=== PATIENT | female | born 1990 | race Caucasian/White ===

== ENCOUNTER → 2016-12-18 | Outpatient (CLI) | payer OTHER, BC ==
[2016-12-21 01:28] LABS: CHLAMYDIA TRACH RNA*** NOT DETECTED (NOT DETECTED); GC (NEIS GONORRHOEAE)RNA** NOT DETECTED (NOT DETECTED)
== END | disposition home or self-care (01) ==
LOC: C.LABSPEC 13:48
PROVIDERS: ATTEND Physician Assistant
DX: Z30.430 Encounter for insertion of intrauterine contraceptive device (principal); Z11.3 Encounter for screening for infections with a predominantly sexual mode of transmission

== ENCOUNTER 2019-08-27 07:31 | Inpatient (IN) ==
--- NOTE | 2019-08-27 07:49 | History & Physical Report ---
Date of Service August 27, 2019 Assessment & Plan (1) : Patient is a 29 yo here for IOL secondary to prolonged at 40w and 6d by LMP. -GBS -, Bloodtype A+ -Pitocin for contraction augmentation -Patient would like to proceed naturally, but considering epidural; will consult anaesthesia if contractions become painful -Anticipate vaginal delivery. (2) Prolonged , antepartum: (3) Supervision of normal first : History of Present Illness Primary Care Provider: NO PCP . At 40w 6d by certain LMP. Presenting for IOL secondary to prolonged . No complications noted with current and has been attending OB appointments appropriately. Patient noted having some contractions every 4-6 minutes overnight, but nothing continuous. She feels baby moving. She has not had fluid loss or vaginal blood loss. Notes that vital bulb placement the night before was somewhat painful, but that she feels good now. Labs -Blood type: A+ -Antibody screen: Negative -H.9 -Hct: 31.7 -Wbc: pending -Plt: pending -Rubella: Immune -VDRL/RPR: Nonreactive -Gonorrhea: Not detected -Chlamydia: Not detected -HIV: Negative -HbSAg: Negative -GBS: Negative -Glucose tolerance x 2: GTT 1hr 103, normal Allergies Allergy/AdvReac Type Severity Reaction Status Date / Time No Known Allergies Allergy Verified 08/26/19 19:33 Home Medications Home Medications Medication Instructions Recorded Confirmed Type calcium carbonate [Calcium 500] 500 mg PO DAILY 11/06/18 08/27/19 History prenat.vits,mariano,eev-trza-sjoyi 1 tab PO DAILY 02/14/19 08/27/19 History ferrous sulfate 325 ml PO DAILY 06/11/19 08/27/19 History Patient History Medical History History of varicella No known health problems Surgical History History of arthroscopy HX OF ACL AND MENISCUS REPAIR 11/2017 History of open reduction and internal fixation (ORIF) procedure Nausea and vomiting after administration of anesthetic agent POST OP NAUSEA AFTER ACL REPAIR. 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 Review of Systems no fever, no chills and no weakness no worsening vision no dizziness no cough and no dyspnea no chest pain, no dyspnea and no palpitations no abdominal pain, no nausea, no vomiting, no constipation and no diarrhea/loose stools no dysuria and no hematuria no headache(s) Physical Exam Constitutional: WD/WN, vitals as above Eyes: PERRL, conjunctivae normal, anicteric sclerae ENMT: external ear and nose normal, oropharynx normal Neck: normal visual inspection Respiratory: normal respiratory effort, lungs clear to auscultation Cardiovascular: Rate/Rhythm: regular rate and regular rhythm Heart Sounds: normal S1 and normal S2; no murmur Gastrointestinal (Abdomen): Inspection/Auscultation: + abdomen distended (Gravid) and normal bowel sounds Psychiatric: A+Ox3, euthymic affect Genitourinary: OB Exam Abdomen: + fundal height (Term), + heart tones (present, current 157), + vertex and + estimated weight (7-8lbs) Manual OB Exam: + cervical dilation 1 cm, + cervical effacement 90% and + station high (-3, posterior) OB Exam Monitor Tracing: + category I Cervical exam conducted by Dr. Rodriguez Code Status & VTE Plan VTE Prophylaxis Plan VTE Prophylaxis will be ordered: No Reason for no VTE drug order: Contraindicated Monitoring External Monitor Category 1, FHR 157 current Tocodynamometer Occasional contractions, no regular noted. Supervising Physician Co-Signing Physician Notes Resident Physician Supervision Note: I was present with Dr. Marlow during the history and exam. I discussed the case with the resident and agree with the findings and plan as documented in the note. Any exceptions or clarifications are listed here: Vital balloon last night, will keep in place for now, start pitocin. OK for epidural when she desires. Documented By: Miya Rodriguez DO Coding Level of Care Code None Diagnoses Z34.90 Prolonged , antepartum O48.1 Supervision of normal first Z34.00 Resident Activity Tracking Resident Involvement: Resident Care Provided Care Provided: OB Delivery
[2019-08-27] MEDS ORDERED: OXYTOCIN 30 UNITS/500 ML BAG IV PRN ×2 (08:08)
[2019-08-27 08:41] LABS: Hematocrit (blood only) 37.2 % (37-47); Hemoglobin 12.7 g/dL (12.0-16.0); Mean Corpuscular Hemoglobin 30.6 pg (25-34); Mean Corpuscular Volume 89.6 fL (80-100); Mean Platelet Volume 10.4 fL (7.4-10.4); Platelet Count 165 K/uL (130-400); RDW Coefficient of Variation 13.3 % (11.5-14.5); RDW Standard Deviation 43.2 fL (36.4-46.3); Red Blood Count 4.15 M/uL (4.2-5.4); White Blood Count 9.46 K/uL (4.8-10.8)
[2019-08-27 08:56] LABS: Mean Corpuscular Hgb Conc 34.1 g/dL (32-36)
[2019-08-27] MEDS: LACTATED RINGER'S 1,000 ML IV PRN ×3 (08:58→18:06)
[2019-08-27] MEDS ORDERED: fentaNYL citrate 100 MCG/2 ML VIAL ONE (17:21)
[2019-08-27] MEDS ORDERED: BUPIVACAINE 0.25% 30 ML VIAL ONE (17:21)
[2019-08-27] MEDS ORDERED: ePHEDrine sulfate 50 MG/ML AMP ONE (17:21)
[2019-08-27] MEDS ORDERED: fentaNYL 2MCG/ML ROPIV 1.25MG/ML 100 ML BAG EPI ONE (17:22)
--- NOTE | 2019-08-27 17:45 | Anesthesiology Consultation ---
Date of Service August 27, 2019 Assessment & Plan (1) Encounter for pre-operative examination: Chart Review Chart Review: Patient NOT seen in Pre Admission Testing and Acceptable Risk for Labor Epidural Consults Requested none ASA ASA2 Proposed Anesthesia Anesthesia Type: Labor Epidural Risk / Benefits Reviewed With: PT / POA / Parent / Guardian, Accepts Plan and Informed Consent Obtained History Height/Weight Height: 5 ft 5 in Weight: 69.4 kg Allergies Allergy/AdvReac Type Severity Reaction Status Date / Time No Known Allergies Allergy Verified 08/26/19 19:33 Medications Home Medications Medication Instructions Recorded Confirmed Last Taken calcium carbonate [Calcium 500] 500 mg PO DAILY 11/06/18 08/27/19 08/27/19 prenat.vits,mariano,isn-hlbd-zrkzf 1 tab PO DAILY 02/14/19 08/27/19 08/27/19 ferrous sulfate 325 ml PO DAILY 06/11/19 08/27/19 08/26/19 Active Medications Generic Name Dose Route Start Last Admin Trade Name Freq PRN Reason Stop Dose Admin Lactated Ringer's 1,000 mls @ 125 mls/hr 08/27/19 08:08 08/27/19 17:18 Lr IV 08/29/19 08:07 999 mls/hr .Q8H PRN Infusion L&D Protocol Protocol Oxytocin 30 units in 500 mls @ 9 mls/hr 08/27/19 08:08 08/27/19 12:12 Pitocin IV 08/29/19 08:07 0.54 units/hr .Q24H PRN 9 mls/hr Labor Induction/Augmentation Titration Protocol 0.54 UNITS/HR NPO Date Last Intake of Fluids: 08/27/19 Time Last Intake of Fluids: 17:43 Date Last Intake of Solids: 08/27/19 Time Last Intake of Solids: 06:30 Past Medical History Medical History History of varicella No known health problems Exercise / Class Metabolic Activity II 4-5 Yardwork/Stairs/Walk up hill Past Family History Family History Sister Depression Anxiety PCOS (polycystic ovarian syndrome) Father Hypertension Grandmother (Maternal) Osteoporosis Past Surgical History Surgical History History of arthroscopy HX OF ACL AND MENISCUS REPAIR 11/2017 History of open reduction and internal fixation (ORIF) procedure Nausea and vomiting after administration of anesthetic agent POST OP NAUSEA AFTER ACL REPAIR. S/P ACL repair S/P wisdom tooth extraction 2009 Past Anesthesia History No Hx of Anesthesia Complications History of PONV History of PONV Social History Smoking Status: Never smoker Smoking cigarettes per day: 0 Hx Alcohol Use: Yes Hx Substance Use: No substance use type: does not use Review of Systems Patient denies active symptoms of GERD. Patient denies history of abnormal bleeding or bleeding disorder. Patient denies active use of anticoagulants other than low dose aspirin. Patient denies numbness, tingling or weakness in lower extremities. Physical Exam Vital Signs Last Vital Signs Temp 36.5 C 08/27/19 14:57 Pulse 92 H 08/27/19 17:38 Resp 18 08/27/19 14:57 BP 135/81 08/27/19 17:37 Pulse Ox 100 08/27/19 17:38 Constitutional not obese (Gravid uterus) ENMT Mouth: no TMJ abnormality and oral opening not small Thyromental Distance: > or= 3.5 Finger Breadths Mallampati Class: II Neck normal visual inspection; neck extension not limited Respiratory normal respiratory effort Auscultation: lungs clear to auscultation bilaterally Cardiovascular Rate/Rhythm: regular rate and regular rhythm Heart Sounds: no murmur Neurologic moves all extremities Motor/Sensory: + sensory deficit (Due to prior orthopedic surgery) Psychiatric Orientation: alert and oriented x 3 Testing Laboratory Results 08/27/19 08:28
--- NOTE | 2019-08-27 18:01 | Labor Progress Brief Note ---
Date of Service August 27, 2019 Subjective Starting to get uncomfortable with contractions. Asking for epidural. FHT Cat 1 [place] q 2 SVE 4/100/-2. Membranes intact. [place] removed. Will get epidural and plan to AROM after. Results & Data Vital Signs (Past 12 Hours) Vital Signs Temp Pulse Resp BP Pulse Ox 08/27/19 17:53 93 H 100 08/27/19 17:52 107 H 93 08/27/19 17:48 86 100 08/27/19 17:43 86 100 08/27/19 17:38 92 H 100 08/27/19 17:37 88 135/81 08/27/19 16:43 86 127/68 08/27/19 14:57 36.5 C 87 18 119/69 08/27/19 14:16 96 H 16 123/68 08/27/19 13:17 79 18 113/72 08/27/19 12:10 96 H 18 141/73 H 08/27/19 11:19 36.7 C 88 20 115/70 08/27/19 10:45 36.6 C 20 08/27/19 10:22 88 18 114/75 08/27/19 09:33 87 18 104/66 08/27/19 09:00 88 16 98/65 L 08/27/19 07:47 121 H 119/77 08/27/19 07:41 36.6 C 18 Coding Level of Care Code None
[2019-08-27] MEDS ORDERED: NALBUPHINE HCL INJ 10 MG/ML AMP IV PRN (18:25)
[2019-08-27] MEDS ORDERED: NALOXONE HCL 0.4 MG/1 ML VIAL/CARP IV PRN (18:25)
[2019-08-27] MEDS ORDERED: DiphenhydrAMINE HCL 50 MG/ML VIAL IV PRN (18:25)
[2019-08-27] MEDS ORDERED: ONDANSETRON INJ 2 MG/ML 2 ML VIAL IV PRN (18:25)
[2019-08-27] MEDS ORDERED: fentaNYL 2MCG/ML ROPIV 1.25MG/ML 100 ML BAG EPI PRN (18:25)
[2019-08-27] MEDS ORDERED: NALOXONE HCL 1 MG in SODIUM CHLORIDE 0.9% 1000ML 1,000 ML IV PRN (18:25)
[2019-08-27] MEDS ORDERED: ePHEDrine sulfate 50 MG/ML AMP IV PRN (18:25)
--- NOTE | 2019-08-27 20:40 | Labor Progress Brief Note ---
Date of Service August 27, 2019 Subjective Comfortable with epidural. FHT Cat 1, [place] Q2 AROM for scant fluid, appears blood-tinged - difficult to determine whether this is actually blood tinge to fluid or if it is bloody show of cervix, as she has had bloody show. SVE /-2 IUPC placed. After AROM, FHT 140s with variable decels with ctx. Will perform resuscitative measures. Results & Data Vital Signs (Past 12 Hours) Vital Signs Temp Pulse Resp BP Pulse Ox 08/27/19 20:33 88 95 08/27/19 20:31 91 H 93 08/27/19 20:28 101 H 97 08/27/19 20:23 88 97 08/27/19 20:22 75 99/57 L 08/27/19 20:18 93 H 98 08/27/19 20:13 93 H 95 08/27/19 20:08 85 95 08/27/19 20:06 86 108/65 08/27/19 20:03 90 96 08/27/19 19:59 91 H 94 08/27/19 19:58 85 95 08/27/19 19:53 92 H 97 08/27/19 19:52 85 107/60 08/27/19 19:48 85 95 08/27/19 19:43 83 96 08/27/19 19:38 84 96 08/27/19 19:35 82 108/59 L 08/27/19 19:33 81 95 08/27/19 19:28 79 96 08/27/19 19:23 83 96 08/27/19 19:20 81 104/64 08/27/19 19:18 84 96 08/27/19 19:13 84 96 08/27/19 19:08 89 98 08/27/19 19:03 36.9 C 93 H 18 117/72 98 08/27/19 18:58 84 97 08/27/19 18:57 96 H 109/73 08/27/19 18:53 88 120/73 99 08/27/19 18:49 94 H 108/72 08/27/19 18:48 90 99 08/27/19 18:43 89 98 08/27/19 18:42 95 H 117/71 08/27/19 18:38 97 H 97 08/27/19 18:37 100 H 119/70 08/27/19 18:33 99 H 115/74 97 08/27/19 18:28 94 H 98 08/27/19 18:27 122 H 133/79 08/27/19 18:25 116 H 130/83 08/27/19 18:23 98 H 108/77 98 08/27/19 18:21 111 H 121/75 08/27/19 18:19 97 H 120/75 08/27/19 18:18 103 H 100 08/27/19 18:17 97 H 121/71 08/27/19 18:15 94 H 126/74 08/27/19 18:13 101 H 125/74 100 08/27/19 18:11 95 H 123/77 08/27/19 18:09 93 H 123/76 08/27/19 18:08 90 99 08/27/19 18:07 98 H 124/76 08/27/19 18:05 94 H 120/71 08/27/19 18:03 92 H 100 08/27/19 17:58 89 100 08/27/19 17:53 93 H 100 08/27/19 17:52 107 H 93 08/27/19 17:48 86 100 08/27/19 17:43 86 100 08/27/19 17:38 92 H 100 08/27/19 17:37 88 135/81 08/27/19 16:43 86 127/68 08/27/19 14:57 36.5 C 87 18 119/69 08/27/19 14:16 96 H 16 123/68 08/27/19 13:17 79 18 113/72 08/27/19 12:10 96 H 18 141/73 H 08/27/19 11:19 36.7 C 88 20 115/70 08/27/19 10:45 36.6 C 20 08/27/19 10:22 88 18 114/75 08/27/19 09:33 87 18 104/66 08/27/19 09:00 88 16 98/65 L Coding Level of Care Code None
--- NOTE | 2019-08-28 00:08 | Obstetrical Progress Note ---
Date of Service August 28, 2019 Subjective Feeling increased pressure. FHT 150, mod jennifer, +accels, +early decels with occasional variable decels SVE 9.5/100/0 to -1 station. Anticipate . Results & Data Vital Signs (Past 12 Hours) Vital Signs Temp Pulse Resp BP Pulse Ox 08/28/19 00:03 95 H 100 08/27/19 23:58 97 H 100 08/27/19 23:53 94 H 100 08/27/19 23:51 102 H 119/71 08/27/19 23:48 106 H 100 08/27/19 23:43 79 97 08/27/19 23:38 78 97 08/27/19 23:36 75 108/60 08/27/19 23:33 75 98 08/27/19 23:28 74 99 08/27/19 23:23 80 100 08/27/19 23:21 110 H 114/85 08/27/19 23:18 83 99 08/27/19 23:13 102 H 97 08/27/19 23:08 93 H 98 08/27/19 23:05 86 117/72 08/27/19 23:03 84 97 08/27/19 22:58 86 97 08/27/19 22:53 80 98 08/27/19 22:50 87 120/73 08/27/19 22:48 86 98 08/27/19 22:43 79 98 08/27/19 22:38 81 100 08/27/19 22:35 36.7 C 89 90 08/27/19 22:33 90 100 08/27/19 22:28 82 99 08/27/19 22:23 81 100 08/27/19 22:20 83 126/73 08/27/19 22:18 72 98 08/27/19 22:13 75 99 08/27/19 22:08 72 97 08/27/19 22:05 103 H 119/65 08/27/19 22:03 74 97 08/27/19 21:58 71 99 08/27/19 21:53 74 97 08/27/19 21:51 73 112/71 08/27/19 21:48 109 H 97 08/27/19 21:43 71 97 08/27/19 21:38 82 96 08/27/19 21:35 81 110/71 08/27/19 21:33 77 97 08/27/19 21:28 78 98 08/27/19 21:26 100 H 92 08/27/19 21:23 82 97 08/27/19 21:18 85 96 08/27/19 21:13 95 H 95 08/27/19 21:09 90 94 08/27/19 21:08 92 H 95 08/27/19 21:03 81 97 08/27/19 20:58 78 97 08/27/19 20:53 79 96 08/27/19 20:52 80 99/66 L 08/27/19 20:48 79 95 08/27/19 20:45 78 94 08/27/19 20:43 77 95 08/27/19 20:38 79 95 08/27/19 20:36 83 119/63 08/27/19 20:33 88 95 08/27/19 20:31 91 H 93 08/27/19 20:30 36.6 C 08/27/19 20:28 101 H 97 08/27/19 20:23 88 97 08/27/19 20:22 75 99/57 L 08/27/19 20:18 93 H 98 08/27/19 20:13 93 H 95 08/27/19 20:08 85 95 08/27/19 20:06 86 108/65 08/27/19 20:03 90 96 08/27/19 19:59 91 H 94 08/27/19 19:58 85 95 08/27/19 19:53 92 H 97 08/27/19 19:52 85 107/60 08/27/19 19:48 85 95 08/27/19 19:43 83 96 08/27/19 19:38 84 96 08/27/19 19:35 82 108/59 L 08/27/19 19:33 81 95 08/27/19 19:28 79 96 08/27/19 19:23 83 96 08/27/19 19:20 81 104/64 08/27/19 19:18 84 96 08/27/19 19:13 84 96 08/27/19 19:08 89 98 08/27/19 19:03 36.9 C 93 H 18 117/72 98 08/27/19 18:58 84 97 08/27/19 18:57 96 H 109/73 08/27/19 18:53 88 120/73 99 08/27/19 18:49 94 H 108/72 08/27/19 18:48 90 99 08/27/19 18:43 89 98 08/27/19 18:42 95 H 117/71 08/27/19 18:38 97 H 97 08/27/19 18:37 100 H 119/70 08/27/19 18:33 99 H 115/74 97 08/27/19 18:28 94 H 98 08/27/19 18:27 122 H 133/79 08/27/19 18:25 116 H 130/83 08/27/19 18:23 98 H 108/77 98 08/27/19 18:21 111 H 121/75 08/27/19 18:19 97 H 120/75 08/27/19 18:18 103 H 100 08/27/19 18:17 97 H 121/71 08/27/19 18:15 94 H 126/74 08/27/19 18:13 101 H 125/74 100 08/27/19 18:11 95 H 123/77 08/27/19 18:09 93 H 123/76 08/27/19 18:08 90 99 08/27/19 18:07 98 H 124/76 08/27/19 18:05 94 H 120/71 08/27/19 18:03 92 H 100 08/27/19 17:58 89 100 08/27/19 17:53 93 H 100 08/27/19 17:52 107 H 93 08/27/19 17:48 86 100 08/27/19 17:43 86 100 08/27/19 17:38 92 H 100 08/27/19 17:37 88 135/81 08/27/19 16:43 86 127/68 08/27/19 14:57 36.5 C 87 18 119/69 08/27/19 14:16 96 H 16 123/68 08/27/19 13:17 79 18 113/72 08/27/19 12:10 96 H 18 141/73 H PG Care Time/CCT Total # of Minutes Spent Total Time Spent with Patient: Total time spent is greater than 50% in coordination of care (as documented) at patient's floor/unit and/or counseling patient: Coding Level of Care Code None
--- NOTE | 2019-08-28 01:04 | Delivery Summary ---
Vaginal Delivery Summary Date of Service August 28, 2019 Vaginal Delivery Summary Vaginal Delivery Summary: Pre-delivery diagnoses: 29yo @ 41 0/7, postdates induction of labor Post-delivery diagnoses: same Procedure: spontaneous vaginal delivery, repair of 2nd degree perineal laceration Surgeon: Miya Rodriguez DO Complications: none Findings: Viable male . Apgars: 8/9 . Weight pending, please see nursery records. Estimated blood loss: 300ml Description of delivery: The patient progressed to complete with epidural anesthesia. She then began to push. She spontaneously vaginally delivered a viable from the cephalic presentation. The head delivered in DELICIA position. Nuchal cord x 2 reduced. The anterior shoulder delivered, followed by the posterior shoulder, followed by the body. The baby was placed on mother's abdomen and a spontaneous cry was heard. Delayed cord clamping was employed, and the cord was doubly clamped and cut. Cord blood was obtained. The placenta was delivered spontaneously intact with a 3-vessel cord. The uterus and vagina were swept of clots and debris. IV pitocin was given. The uterus became firm. The cervix, vagina, and perineum were inspected and a 2nd degree laceration was noted and repaired in standard fashion with 3-0 Vicryl. Excellent hemostasis was observed. The mother and baby are recovering in stable and good condition in the room. Sponge, needle, and instrument counts were correct x 2. Miya Rodriguez DO [facility] Vaginal Delivery Charge Vaginal Delivery Codes: 40361 global code for the antepartum, delivery, and post-
[2019-08-28] MEDS ORDERED: DIPHTHERIA/TETANUS/PERTUSSIS 0.5 ML SYR/VIAL IM ONE (01:05)
[2019-08-28] MEDS ORDERED: ACETAMINOPHEN 325 MG TAB PO PRN (01:05)
[2019-08-28] MEDS ORDERED: SUPERCREAM 0.870% 15 GM JAR EXT PRN (01:05)
[2019-08-28] MEDS ORDERED: OXYCODONE/ACETAMINOPHEN 5mg/325mg TAB PO PRN (01:05)
[2019-08-28] MEDS ORDERED: bisacodyL 10 MG SUPP PR PRN (01:05)
[2019-08-28] MEDS ORDERED: OXYTOCIN 30 UNITS/500 ML BAG IV PRN (01:05)
[2019-08-28] MEDS ORDERED: HYDROCORTISONE ACETATE 25 MG SUPP PR PRN (01:05)
[2019-08-28] MEDS ORDERED: BENZOCAINE 20% AER SPR 82.5 GM CAN EXT PRN (01:05)
[2019-08-28] MEDS: IBUPROFEN 600 MG TAB PO PRN ×3 (04:23→20:52)
[2019-08-28] MEDS: PRENATAL VITAMIN 1 TAB PO SCH (08:08)
[2019-08-28] MEDS: CALCIUM CARBONATE 1250MG TAB PO SCH (08:08)
[2019-08-28] MEDS: DOCUSATE SODIUM 100 MG CAP PO SCH ×2 (08:08→20:53)
--- NOTE | 2019-08-28 08:52 | Anesthesia Procedure Note ---
Date of Service August 28, 2019 Anesthesia Post Epidural Note Vital Signs Vital Signs: Temp Pulse Resp BP Pulse Ox 36.5 C 91 H 14 104/67 96 08/28/19 07:51 08/28/19 07:51 08/28/19 07:51 08/28/19 07:51 08/28/19 07:51 Pain Intensity Abdomen: Pain Intensity: 3 Notes Mental Status: alert / awake / arousable and participated in evaluation Nausea / Vomiting: adequately controlled Pain: adequately controlled Airway Patency, RR, SpO2: stable & adequate BP & HR: stable & adequate Hydration State: stable & adequate Neuraxial Anesthesia: was administered and sensory block is resolving Anesthetic Complications: no major complications apparent and Pt Satisfied with anesthetic care Epidural: Removed without complications and With tip intact
[2019-08-28] MEDS ORDERED: NON-FORMULARY MEDICATION (Prenat.Vits,Cal,Min-Iron-Folic 1 TAB) PO SCH (09:00)
[2019-08-29 05:57] LABS: Hematocrit (blood only) 30.9 % (37-47); Hemoglobin 10.6 g/dL (12.0-16.0)
--- NOTE | 2019-08-29 06:27 | Obstetrical Progress Note ---
Date of Service <Rei Marlow DO - Last Filed: 08/29/19 06:27> August 29, 2019 Assessment & Plan <Rei Marlow DO - Last Filed: 08/29/19 06:27> (1) : -PPD#1 -Vitals reviewed, WNL (Tmax 36.8) - GBS -, Blood Type A+ - Clinically stable. - Feels well today. Eating well, voiding well, ambulating well. - Pain well controlled. - Routine post- care - After discharge will have [address] Rodriguez. Day #:: 1 Subjective <Rei Guillaumebrennon - Last Filed: 08/29/19 06:27> Ambulation: ambulating normally Voiding: no voiding problems Passing Gas:: Yes Diet Tolerance:: regular diet Lochia:: Moderate Feeding Type:: breast feeding (and bottle) Current Pain Level(1-10): 2 (improves with analgesics) Patient is a 29 PPD#1 (had delivered 1AM on 08/28). Patient states that she is feeling well today and that her pain is well controlled. She has no other complaints at this time. Constitutional: no fever and no chills Respiratory: no cough, no dyspnea and no wheezing Cardiovascular: no chest pain, no dyspnea, no palpitations, no edema and no calf pain Breast: no breast pain Gastrointestinal: no abdominal pain, no nausea and no vomiting Genitourinary (female): no dysuria and no difficulty urinating Neurologic: no headache(s) Physical Exam <Rei Guillaumebrennon DO [facility] Last Filed: 08/29/19 06:27> Constitutional WD/WN, vitals as above Respiratory normal respiratory effort, lungs clear to auscultation Cardiovascular Rate/Rhythm: regular rate and regular rhythm Heart Sounds: normal S1 and normal S2; no click, no gallop, no murmur and no cardiac rub Extremities: no calf tenderness and no edema Gastrointestinal (Abdomen) Inspection/Auscultation: abdomen normal to inspection and normal bowel sounds Percussion/Palpation: abdomen soft; abdomen nontender Genitourinary OB Exam Abdomen: + fundal height Fundus: + firm and + relation to umbilicus (3cm below); not tender and not boggy Results & Data <Rei Guillaumebrennon - Last Filed: 08/29/19 06:27> Vital Signs (Past 12 Hours) Vital Signs Temp Pulse Resp BP Pulse Ox 08/28/19 23:35 36.4 C L 82 16 106/65 08/28/19 19:38 36.6 C 89 16 118/77 97 <Gale Schneider MD, FACOG - Last Filed: 08/29/19 07:35> Co-Signing Physician Notes Resident Physician Supervision Note: I interviewed and examined the patient. Discussed with Dr. Marlow and agree with findings and plan as documented in the note. Any exceptions or clarifications are listed here: Doing very well. Routine care. Documented By: Gale Schneider MD, FACOG Resident Activity Tracking <Rei Marlow DO - Last Filed: 08/29/19 06:27> Resident Involvement: Resident Care Provided Care Provided: OB Delivery
[2019-08-29] MEDS: CALCIUM CARBONATE 1250MG TAB PO SCH (07:55)
[2019-08-29] MEDS: PRENATAL VITAMIN 1 TAB PO SCH (07:55)
[2019-08-29] MEDS: DOCUSATE SODIUM 100 MG CAP PO SCH (07:55)
[2019-08-29] MEDS: IBUPROFEN 600 MG TAB PO PRN (07:55)
[2019-08-29] MEDS ORDERED: bisacodyL 5 MG TABEC PO SCH (20:00)
== END 2019-08-29 18:10 | disposition home or self-care (01) | DRG 807 ==
LOC: 4S1 07:31 → 4S2 08-28 04:13

== ENCOUNTER 2021-11-28 10:47 | Inpatient (IN) ==
[2021-11-28] MEDS ORDERED: LACTATED RINGER'S 1,000 ML IV PRN (11:11)
[2021-11-28] MEDS ORDERED: OXYTOCIN 30 UNITS/500 ML BAG IV PRN ×2 (11:11→16:13)
--- NOTE | 2021-11-28 11:19 | History & Physical Report ---
Date of Service November 28, 2021 Assessment & Plan (1) Post term at 41 weeks gestation: Plan: IUP at 41 weeks in spontaneous labor. epidural when requested anticipate vaginal History of Present Illness Primary Care Provider: NO PCP Patient is a 31 yo white female EDC 11/20/21 who presents at 41 weeks with regular contractions since 0500 today. No SPROM. complicated by anemia. GBS negative. Allergies Allergy/AdvReac Type Severity Reaction Status Date / Time No Known Allergies Allergy Verified 11/21/21 11:35 Home Medications Medication Instructions Recorded Confirmed Type calcium carbonate 500 mg calcium 500 mg PO DAILY 11/06/18 11/21/21 History (1,250 mg) tablet (Calcium 500) prenat.vits,mariano,naq-vast-epcpq 1 tab PO DAILY 02/14/19 11/21/21 History Patient History Medical History History of varicella No known health problems Surgical History History of arthroscopy History of hysteroscopy History of open reduction and internal fixation (ORIF) procedure Nausea and vomiting after administration of anesthetic agent S/P ACL repair S/P wisdom tooth extraction Family History Sister Depression Anxiety PCOS (polycystic ovarian syndrome) Father Hypertension Grandmother (Maternal) Osteoporosis Denies family history of Ovarian cancer Breast cancer Colorectal cancer Social History Smoking Status: Never smoker Cigarettes Per Day: 0; Second Hand Exposure: No; Hx Alcohol Use: No Hx Substance Use: No Preferred Language: Kittitian Communication Ability: Effective Muff Winder Required: No Beliefs That Will Affect Care: None marital status: marital status details: Maycol Canalesmojgan(36) [phone] Current Living Situation: Spouse and Family Current Living Situation Comment: lives with spouse, and son, 1 dog, 1 outside cat current occupational status: employed current occupation: self employed cafeteria director Feels Safe at Home: Yes Assistive Devices: None Review of Systems All systems reviewed & are unremarkable except as noted in HPI & below Physical Exam Constitutional: WD/WN, vitals as above Psychiatric: A+Ox3, euthymic affect Genitourinary: OB Exam Abdomen: + vertex, + estimated weight (7-8 pounds) and + regular contractions Manual OB Exam: + cervical dilation 4 cm, + cervical effacement 70% and + station -2 OB Exam Monitor Tracing: + external FHT monitor used, + external uterine monitor used, + category I and + normal FHT variability Results & Data ([facility]) Vital Signs (Past 12 Hours) Vital Signs Pulse BP 11/28/21 10:52 84 118/71 Code Status & VTE Plan VTE Prophylaxis Plan VTE Prophylaxis will be ordered: No Coding Level of Care Code None Diagnoses Post term at 41 weeks gestation O48.0; Z3A.41
[2021-11-28 11:55] LABS: Hematocrit (blood only) 35.5 % (37-47); Hemoglobin 11.3 g/dL (12.0-16.0); Mean Corpuscular Hemoglobin 26.9 pg (25-34); Mean Corpuscular Hgb Conc 31.8 g/dL (32-36); Mean Corpuscular Volume 84.5 fL (80-100); Mean Platelet Volume 10.6 fL (7.4-10.4); Platelet Count 249 K/uL (130-400); RDW Coefficient of Variation 14.2 % (11.5-14.5); RDW Standard Deviation 43.5 fL (36.4-46.3)
[2021-11-28] MEDS ORDERED: ONDANSETRON INJ 2 MG/ML 2 ML VIAL IV PRN (12:15)
[2021-11-28] MEDS ORDERED: diphenhydrAMINE 50 MG/ML VIAL IV PRN (12:15)
[2021-11-28] MEDS ORDERED: NALOXONE HCL 1 MG in SODIUM CHLORIDE 0.9% 1000ML 1,000 ML IV PRN (12:15)
[2021-11-28] MEDS ORDERED: NALBUPHINE HCL INJ 10 MG/ML AMP IV PRN (12:15)
[2021-11-28] MEDS ORDERED: NALOXONE HCL 0.4 MG/1 ML VIAL/CARP IV PRN (12:15)
[2021-11-28] MEDS ORDERED: ePHEDrine sulfate 50 MG/ML AMP IV PRN (12:15)
[2021-11-28] MEDS ORDERED: fentaNYL 2MCG/ML ROPIVACAINE 1.25MG/ML 100 ML BAG EPI PRN (12:15)
[2021-11-28] MEDS ORDERED: ePHEDrine sulfate 50 MG/ML AMP ONE (12:16)
[2021-11-28] MEDS ORDERED: fentaNYL citrate 100 MCG/2 ML VIAL ONE (12:17)
[2021-11-28] MEDS ORDERED: BUPIVACAINE 0.25% 30 ML VIAL ONE (12:17)
[2021-11-28] MEDS ORDERED: SODIUM CHLORIDE 0.9% INJ 10 ML VIAL ONE (12:17)
[2021-11-28] MEDS ORDERED: fentaNYL 2MCG/ML ROPIVACAINE 1.25MG/ML 100 ML BAG EPI ONE (12:18)
--- NOTE | 2021-11-28 12:52 | Anesthesiology Consultation ---
Date of Service November 28, 2021 Assessment & Plan (1) Encounter for pre-operative examination: Chart Review Chart Review: Patient NOT seen in Pre Admission Testing and Acceptable Risk for Labor Epidural Consults Requested none History Height/Weight Height: 5 ft 5 in Weight: 68.492 kg Allergies Allergy/AdvReac Type Severity Reaction Status Date / Time No Known Allergies Allergy Verified 11/28/21 11:49 Medications Home Medications Medication Instructions Recorded Confirmed Last Taken prenat.vits,mariano,igi-[id number]-njuql 1 tab PO DAILY 11/28/21 11/28/21 11/27/21 08:00 Active Medications Generic Name Dose Route Start Last Admin Trade Name Freq PRN Reason Stop Dose Admin Lactated Ringer's 1,000 mls @ 125 mls/hr 11/28/21 11:11 11/28/21 12:20 Lr IV 11/30/21 11:10 999 mls/hr .Q8H PRN Administration L&D Protocol Protocol Past Medical History Medical History History of varicella No known health problems Exercise / Class Metabolic Activity II 4-5 Yardwork/Stairs/Walk up hill Past Family History Family History Sister Depression Anxiety PCOS (polycystic ovarian syndrome) Father Hypertension Grandmother (Maternal) Osteoporosis Denies family history of Ovarian cancer Breast cancer Colorectal cancer Past Surgical History Surgical History History of arthroscopy HX OF ACL AND MENISCUS REPAIR 11/2017 History of hysteroscopy IUD removal History of open reduction and internal fixation (ORIF) procedure Nausea and vomiting after administration of anesthetic agent POST OP NAUSEA AFTER ACL REPAIR. S/P ACL repair S/P wisdom tooth extraction 2009 Past Anesthesia History No Hx of Anesthesia Complications and No Family Hx of Anesthesia Complications Social History Smoking Status: Never smoker Smoking cigarettes per day: 0 Hx Alcohol Use: No Hx Substance Use: No substance use type: does not use Physical Exam Vital Signs Last Vital Signs Temp 36.8 C 11/28/21 11:06 Pulse 91 H 11/28/21 13:11 Resp 20 11/28/21 11:06 BP 118/71 11/28/21 10:52 Pulse Ox 100 11/28/21 13:11 Testing Laboratory Results 11/28/21 11:34
[2021-11-28] MEDS ORDERED: bisacodyL 10 MG SUPP PR PRN (16:13)
[2021-11-28] MEDS ORDERED: ACETAMINOPHEN 325 MG TAB PO PRN (16:13)
[2021-11-28] MEDS ORDERED: HYDROCORTISONE ACETATE 25 MG SUPP PR PRN (16:13)
[2021-11-28] MEDS ORDERED: DIPHTHERIA/TETANUS/PERTUSSIS 0.5 ML SYR/VIAL IM ONE (16:13)
[2021-11-28] MEDS ORDERED: BENZOCAINE 20% AER SPR 82.5 GM CAN EXT PRN (16:13)
--- NOTE | 2021-11-28 17:18 | Anesthesia Procedure Note ---
Date of Service November 28, 2021 Anesthesia Post Epidural Note Vital Signs Vital Signs: Temp Pulse Resp BP Pulse Ox 36.8 C 74 20 97/58 L 94 11/28/21 11:06 11/28/21 17:05 11/28/21 11:06 11/28/21 17:05 11/28/21 15:57 Notes Mental Status: alert / awake / arousable and participated in evaluation Patient Amnestic to Procedure: No Nausea / Vomiting: adequately controlled Pain: adequately controlled Airway Patency, RR, SpO2: stable & adequate BP & HR: stable & adequate Hydration State: stable & adequate Neuraxial Anesthesia: was administered and sensory block is resolving Anesthetic Complications: no major complications apparent and Pt Satisfied with anesthetic care Epidural: Removed without complications and With tip intact
[2021-11-28] MEDS: IBUPROFEN 600 MG TAB PO PRN (21:06)
[2021-11-28] MEDS: DOCUSATE SODIUM 100 MG CAP PO SCH (21:07)
--- NOTE | 2021-11-29 01:00 | Delivery Summary ---
DATE OF SERVICE: 11/28/2021 PROCEDURE: Normal spontaneous vaginal delivery with small second-degree perineal laceration repair. SURGEON: Anthony Hernández MD PREOPERATIVE DIAGNOSES: 1. Single intrauterine at 41 weeks 1 day gestational age. 2. Spontaneous labor. 3. Meconium stained fluid. POSTOPERATIVE DIAGNOSES: 1. Single intrauterine at 41 weeks 1 day gestational age. 2. Spontaneous labor. 3. Meconium stained fluid. 4. Status post procedure. ESTIMATED BLOOD LOSS: 300 mL. DRAINS: None. URINE OUTPUT: Not measured. COMPLICATIONS: None. FINDINGS: Viable male , weight pending, Apgars of 8 and 9 at one and five minutes respectively . HOSPITAL COURSE: The patient was admitted in active labor and progressed rapidly to complete-complet e, +2 station, pushed over 2 contractions to achieve delivery. DESCRIPTION OF PROCEDURE: The patient progressed to 10 cm dilated, 100% effaced, positive 2-3 statio n, pushed over intact perineum with epidural anesthesia and delivered a viable male with the w eight and Apgars as noted above. Head of the delivered in MICHELINE position, restituted to right transverse. No nuchal cord was noted. Body and shoulders quickly followed. was noted to be vigorous soon after delivery. A 1-minute delayed cord clamping was initiated. The cord was then do uble clamped and cut. The was returned to maternal abdomen, was still vigorous. Cord blood was obtained. Attention was then turned to delivery of the placenta, which was delivered intact, 3-v essel cord, gentle cord traction. On inspection of the perineum, vagina, cervix, there was noted to be a small second-degree laceration, which was repaired with 3-0 Vicryl in a traditional crown stitch . Needle, sponge, and instrument counts were correct at the completion of the case. Both mother and were stable in the immediate post-delivery period. Job ID: [id number]
[2021-11-29] MEDS: IBUPROFEN 600 MG TAB PO PRN ×3 (04:50→20:50)
--- NOTE | 2021-11-29 06:43 | Obstetrical Progress Note ---
Date of Service <Paolo Vicente DO - Last Filed: 11/29/21 08:02> November 29, 2021 Assessment & Plan <Paolo Vicente DO - Last Filed: 11/29/21 08:02> (1) Encounter for care and examination after delivery: 31 yo post day 1 from vaginal delivery, doing well. -Continue routine post care. -vital signs reviewed and WNL. (Tmax 36.7) -Blood type A+, GBS negative, Rubella immune -Encourage ambulation, monitor and control pain with Motrin, tylenol PRN, resume regular diet, monitor lochia. -encourage breast feeding. -Discussed discharge with patient. Patient will follow up with Dr. Hernández in 6 weeks. <Anthony Hernández MD - Last Filed: 11/29/21 08:26> (1) Encounter for care and examination after delivery: Subjective <Paolo Vicente - Last Filed: 11/29/21 08:02> Ambulation: ambulating normally Voiding: no voiding problems Passing Gas:: Yes Diet Tolerance:: regular diet Lochia:: Small Feeding Type:: breast feeding Current Pain Level(1-10): 0 Review of Systems Denies fever, chills, sweats Denies shortness of breath, difficulty breathing, chest pain, palpitations, chest pressure. Denies breast pain. Denies dysuria. Denies headache or changes in vision Physical Exam <Paolo Vicente DO - Last Filed: 11/29/21 08:02> General: Alert, oriented. No acute distress. Cardiac: Regular rate and rhythm, no murmurs/rubs/gallops. Respiratory: Clear to auscultation bilaterally a/p, no wheezes/rales/rhonchi. No increased work of breathing. Symmetrical chest rise. No respiratory distress. Abdomen: Soft, nontender, nondistended. Bowel sounds present. Uterus: Uterine fundus firm, palpable 1 cm below umbilicus. Lower Extremities: No lower extremity edema or swelling. No deep calf pain. Nia's negative bilaterally Results & Data ([facility]) <Paolo Vicente - Last Filed: 11/29/21 08:02> Vital Signs (Past 12 Hours) Vital Signs Temp Pulse Pulse Resp BP BP Pulse Ox 11/29/21 04:00 36.6 C 84 16 107/68 97 11/28/21 23:30 36.6 C 70 16 107/65 97 11/28/21 20:50 36.7 C 73 16 115/69 98 11/28/21 19:55 36.8 C 18 11/28/21 19:01 36.8 C 92 H 18 142/64 H <Anthony Hernández MD - Last Filed: 11/29/21 08:26> Co-Signing Physician Notes Patient seen and evaluated and agree with the above findings and plan. Routine care. Doing well Resident Activity Tracking <Paolo Vicente DO - Last Filed: 11/29/21 08:02> Resident Involvement: Resident Care Provided Care Provided: OB Delivery
[2021-11-29] MEDS: PRENATAL VITAMIN 1 TAB PO SCH (07:17)
[2021-11-29] MEDS: FERROUS SULFATE 325 MG TAB PO SCH (07:17)
[2021-11-29] MEDS: DOCUSATE SODIUM 100 MG CAP PO SCH ×2 (07:17→20:51)
[2021-11-29 07:54] LABS: Hemoglobin 10.2 g/dL (12.0-16.0)
[2021-11-29] MEDS ORDERED: bisacodyL 5 MG TABEC PO SCH (20:00)
--- NOTE | 2021-11-30 06:24 | Obstetrical Progress Note ---
Date of Service <Paolo Vicente DO - Last Filed: 11/30/21 08:10> November 30, 2021 Assessment & Plan <Paolo Vicente DO - Last Filed: 11/30/21 08:10> (1) Encounter for care and examination after delivery: 31 yo post day 2 from vaginal delivery, doing well. -Continue routine post care. -vital signs reviewed and WNL. (Tmax 36.8) -Blood type A+, GBS negative, Rubella immune -Encourage ambulation, monitor and control pain with Motrin, tylenol PRN, resume regular diet, monitor lochia. -encourage breast feeding. -Discussed discharge with patient. Patient will follow up with Dr. Hernández in 6 weeks. <Gale Schneider MD, FACOG - Last Filed: 11/30/21 08:13> (1) Encounter for care and examination after delivery: Subjective <Paolo Vicente DO - Last Filed: 11/30/21 08:10> Ambulation: ambulating normally Voiding: no voiding problems Passing Gas:: Yes Diet Tolerance:: regular diet Lochia:: Small Feeding Type:: breast feeding Current Pain Level(1-10): 0 Review of Systems Denies fever, chills, sweats Denies shortness of breath, difficulty breathing, chest pain, palpitations, chest pressure. Denies breast pain. Denies dysuria. Denies headache or changes in vision Physical Exam <Paolo Vicente DO - Last Filed: 11/30/21 08:10> General: Alert, oriented. No acute distress. Cardiac: Regular rate and rhythm, no murmurs/rubs/gallops. Respiratory: Clear to auscultation bilaterally a/p, no wheezes/rales/rhonchi. No increased work of breathing. Symmetrical chest rise. No respiratory distress. Abdomen: Soft, nontender, nondistended. Bowel sounds present. Uterus: Uterine fundus firm, palpable 4 cm below umbilicus. Lower Extremities: No lower extremity edema or swelling. No deep calf pain. Nia's negative bilaterally Results & Data ([facility]) <Paolo Vicente DO - Last Filed: 11/30/21 08:10> Vital Signs (Past 12 Hours) Vital Signs Temp Pulse Resp BP Pulse Ox 11/29/21 23:10 36.5 C 75 18 103/68 99 11/29/21 20:45 36.7 C 73 16 120/75 97 <Gale Schneider MD, FACOG - Last Filed: 11/30/21 08:13> Co-Signing Physician Notes Resident Physician Supervision Note: I interviewed and examined the patient. Discussed with Dr. Moseley and agree with findings and plan as documented in the note. Any exceptions or clarifications are listed here: Doing well. Plan d/c. Instructions reviewed. Will nest if baby not d/c. Documented By: Gale Schneider MD, FACOG Resident Activity Tracking <Paolo Vicente DO - Last Filed: 11/30/21 08:10> Resident Involvement: Resident Care Provided Care Provided: OB Delivery
[2021-11-30] MEDS: DOCUSATE SODIUM 100 MG CAP PO SCH ×2 (08:29→19:32)
[2021-11-30] MEDS: PRENATAL VITAMIN 1 TAB PO SCH (08:29)
[2021-11-30] MEDS: IBUPROFEN 600 MG TAB PO PRN ×2 (08:29→17:20)
[2021-11-30] MEDS: FERROUS SULFATE 325 MG TAB PO SCH (08:29)
== END 2021-11-30 20:50 | disposition home or self-care (01) | DRG 807 ==
LOC: OPB 10:47 → 4S1 10:48 → 4E2 20:25